=== PATIENT | female | born 1945 | race Caucasian/White ===

== ENCOUNTER 2018-04-15 05:26 | Inpatient (IN) | payer OTHER ==
[2018-03-31 08:44] LABS: HEMATOCRIT 39.2 % (37.0-47.0); HEMOGLOBIN 13.4 gm/dL (12.0-15.0); MCHC 34.2 g/dL (28.0-37.0); MCV 96.4 fL (80.0-100.0); RBC 4.07 mil/uL (4.20-5.00); RDW 12.9 % (10.5-14.5); WBC 5.1 thou/uL (4.0-11.0)
[2018-03-31 08:45] LABS: URINE BILIRUBIN NEGATIVE (Negative); URINE BLOOD TRACE (Negative); URINE CLARITY CLEAR; URINE COLOR YELLOW; URINE GLUCOSE-RANDOM* NEGATIVE (Negative); URINE KETONES NEGATIVE (Negative); URINE NITRITE-REFLEX NEGATIVE (Negative); URINE PROTEIN (DIPSTICK) NEGATIVE (Negative); URINE UROBILINOGEN 0.2 E.U./dl (0.2-1.0)
[2018-03-31 08:48] LABS: URINE LEUKOCYTES-REFLEX TRACE (Negative)
[2018-03-31 08:54] LABS: ALBUMIN 3.7 g/dL (3.4-5.0); CALCIUM 9.1 mg/dL (8.5-10.1); POTASSIUM 4.3 mmol/L (3.5-5.1)
[2018-03-31 09:04] LABS: PROTIME 9.5 Seconds (9.3-11.4)
[~2018-04-15] VITALS: Ht 157.5 cm; Wt 77.1 kg
[2018-04-15] VITALS (8 sets, daily range): BP systolic 112–136; BP diastolic 48–72
--- NOTE | ~2018-04-15 | O ---
[facility] [place] [address] OPERATIVE REPORT Name: DEON ERICKSON Room #: 462-P ADM IN M.R.#: [id number] Admission: 04/15/18 Attend Phys: Zbigniew Lees MD Discharge: Date of : 47 Report #: [id number] THIS REPORT FOR: //name// CC: Zbigniew Farrell DATE OF SERVICE: 04/15/2018 PREOPERATIVE DIAGNOSIS: Right knee osteoarthritis. POSTOPERATIVE DIAGNOSIS: Right knee osteoarthritis. PROCEDURE: Right total knee arthroplasty with NAVIO assist. SURGEON: Zbigniew Lees M.D. FLAG CAR DRIVER: Rebekah Randolph PA-C. INDICATIONS FOR FLAG CAR DRIVER: Throughout the case, extensive retraction and manipulation of the knee was required. This was afforded to me by my retail sales assistant. ANESTHESIA: LMA with an adductor canal block. IMPLANTS: [employer] size 6 Legion narrow cobalt chrome femur, a size 4 tibia, size 9 polyethylene and size 32 patella. TOURNIQUET TIME: 69 minutes. ESTIMATED BLOOD LOSS: 25 mL. COMPLICATIONS: None. SPECIMENS: None. CONDITION UPON LEAVING THE ROOM: Stable. INDICATION FOR PROCEDURE: The patient is a 72-year-old female with has severe right knee osteoarthritis. She failed conservative treatment for this and after discussion with her, she elected for right total knee arthroplasty. DESCRIPTION OF PROCEDURE: Risks, benefits, alternatives, complications were discussed in detail with the patient including, but not limited to risk of anesthesia, risk of damage to nerves, arteries, blood vessels, risk for infection, bleeding, risk for continued knee pain and need for reoperation. Informed consent was obtained from the patient. The right knee was appropriately marked in the preoperative holding area. Adductor canal block was [address] [address] OPERATIVE REPORT Name: DEON ERICKSON Room #: 462-P ADM IN M.R.#: [id number] Admission: 04/15/18 Attend Phys: Zbigniew Lees MD Discharge: Date of : 47 Report #: [id number] placed by anesthesia. IV Ancef was given for preoperative antibiotics. She was brought to the operating room and placed in the supine position on the operating room table. LMA anesthesia was induced without complication. Tourniquet was placed on the right thigh. Right lower extremity was prepped and draped in normal sterile fashion. Timeout was performed, properly identifying the patient, procedure as well as the instrumentation and implants. All in the operating room were in agreement. Right lower extremity was exsanguinated, tourniquet was inflated. Tourniquet time was 69 minutes. Standard midline approach to the knee was made with 10 blade through the skin and dissection was taken down sharply to the fascia and deep flaps were developed medially and laterally. Fresh 10 blade was used to make a medial parapatellar arthrotomy and anterior horns of the meniscus were removed. There was tricompartmental osteoarthritis of the knee. ACL and PCL were removed sharply. Reference pins were then placed in the femur and the tibia and digital mapping of the knee was then performed using the NAVWin[employer] computer system. The intraoperative plan was formulated and was measured to be a 6 narrow femur and a 4 tibia. Components were positioned digitally for good balance of the knee and then a distal femoral cut was made using the NAVIO steve. A 4-in-1 cutting block for the size 6 femur was then placed and anterior, posterior chamfer cuts were made. Attention was then turned to the tibia. The remainder of the menisci were removed with Bovie cautery. The tibial resection guide was pinned in place using the NAVIO retail sales assistant and tibial resection was made. After this, the tibial size found to be a size 4. Size 4 tibial trial was placed and size 6 femoral trial was placed and a box cut was made. This was then trialed with a size 9 polyethylene. Knee was taken through range of motion and found to have equal balance in flexion and extension both medially and laterally. This was confirmed both manually and digitally using a NAVIO. 9 mm was taken off the posterior surface of the patella and a size 32 patellar trial was placed. Knee was taken through range of motion and found to be stable, found to have good . After this, trial components were removed. Bony ends were thoroughly irrigated with normal saline. A final size 4 tibia, size 6 narrow posterior stabilized femur and a size 32 patella were cemented in place using standard cementation techniques. While the cement cured, a periarticular injection consisting of morphine, ropivacaine, epinephrine and Toradol was placed around the knee joint. After the cement cured, the tourniquet was deflated. Hemostasis was obtained with Bovie cautery. A final size 9 polyethylene was placed. 1 gram of vancomycin was placed deep in the joint. The fascia was closed with 0 Vicryl, skin was closed with 2-0 Vicryl, 3-0 Monocryl. Dermabond and a JOLANTA dressing was applied. The patient tolerated this procedure well and went to recovery room under care of anesthesia postoperatively. <ELECTRONICALLY SIGNED> By: Zbigniew Lees MD 04/16/18 1614 1225 [id number] Zbigniew Lees MD /nt
--- NOTE | ~2018-04-15 | EKG ---
[address] [address] ELECTROCARDIOGRAM REPORT Name: DEON ERICKSON Room #: PRE IN [facility]#: [id number] Admission: Attend Phys: Zbigniew Lees MD Discharge: Date of : 47 Report #: [id number] THIS REPORT FOR: //name// [facility] Test Date: 2018-03-31 Test Time: 08:39:10 Pat Name: DEON ERICKSON Department: Room: Gender: F Community Service Coordinator: kit : 1945 Requested By: Zbigniew Lees Order Number: [id number] MD: Reinaldo Lu Measurements Intervals [place] Rate: 73 P: 42 MI: 152 QRS: 4 QRSD: 96 T: 38 QT: 382 QTc: 421 Interpretive Statements Sinus rhythm Normal tracing No previous ECG available for comparison Electronically Signed On 03-31-2018 8:50:21 CDT by Reinaldo Lu [email or web address] <ELECTRONICALLY SIGNED> By: Reinaldo Lu MD, [facility] 03/31/18 0850 0839 0839 Reinaldo Lu MD, FAC /EPI
[~2018-04-15 05:26] MED LIST: ALEVE220 MG PO; CALCIUM 500 +1 EACH PO; DULERA 200 MCG/13 GM INH; HYDROCHLOROTH12.5 M1 PO; MUCINEX600 MG PO; NASONEX17 GM NASAL; PROAIR HFA8.5 GM INH; SINGULAIR 10 MG10 M1 PO; SYNTHROID75 MCG PO; XYZAL5 MG PO; ZANTAC 150MG T150 MG PO
[2018-04-16 01:19] VITALS: BP 118/59
[2018-04-16 04:55] VITALS: BP 109/57
[2018-04-16 05:43] LABS: HEMATOCRIT 31.5 % (37.0-47.0); HEMOGLOBIN 10.7 gm/dL (12.0-15.0); MCH 33.2 pg (26.0-34.0); MCHC 33.8 g/dL (28.0-37.0); MCV 98.1 fL (80.0-100.0); RBC 3.21 mil/uL (4.20-5.00); WBC 7.6 thou/uL (4.0-11.0)
[2018-04-16 10:21] VITALS: BP 112/54
[2018-04-16 16:45] VITALS: BP 111/62
[2018-04-16 19:33] VITALS: BP 122/64
[2018-04-16 23:46] VITALS: BP 115/63
[2018-04-17 05:56] VITALS: BP 118/66
[2018-04-17 06:50] LABS: HEMATOCRIT 29.8 % (37.0-47.0); HEMOGLOBIN 10.2 gm/dL (12.0-15.0); MCH 33.5 pg (26.0-34.0); MCHC 34.3 g/dL (28.0-37.0); MCV 97.9 fL (80.0-100.0); RBC 3.05 mil/uL (4.20-5.00); RDW 13.3 % (10.5-14.5); WBC 6.3 thou/uL (4.0-11.0)
[2018-04-17 08:07] VITALS: BP 115/56
[2018-04-17 12:36] VITALS: BP 116/60
[2018-04-17 14:12] VITALS: BP 116/60
[2018-04-17 14:35] VITALS: BP 116/60
== END 2018-04-17 15:43 | disposition home health service (06) | DRG 470 ==
LOC: PRE 05:26 → 4W 05:29 → TBA 05:29 → PRE 08:05 → 4W 14:14 → ENTRNSPT 04-17 15:30 → EDTRNSPTSTS 04-17 15:34 → 4W 04-17 15:43
PROVIDERS: Orthopaedic Surgery
PROC: 0SRC0J9 Replacement of Right Knee Joint with Synthetic Substitute, Cemented, Open Approach (ICD-10-PCS; principal; 2018-04-15)
DX: M17.11 Unilateral primary osteoarthritis, right knee (principal); K21.9 Gastro-esophageal reflux disease without esophagitis; J45.909 Unspecified asthma, uncomplicated; E03.9 Hypothyroidism, unspecified; I10 Essential (primary) hypertension; Z96.652 Presence of left artificial knee joint; Z90.49 Acquired absence of other specified parts of digestive tract; Z98.42 Cataract extraction status, left eye; Z98.41 Cataract extraction status, right eye
CPT/HCPCS: 10047; 50010; 50101; 50415; 50954; 51130; 51225; 51771; 53000; 53078; 53364; 54118; 56528; 57095; 57103; 57109; 57110; 57113; 57127; 62110; 62900; 70005